=== PATIENT | female | born 1965 | race Asian ===

== ENCOUNTER 2019-04-13 20:48 | Emergency (ER) | payer OTHER ==
[~2019-04-13] VITALS: Ht 157.5 cm; Wt 50.0 kg
[2019-04-13] MEDS ORDERED: LISI-662 PO (20:58)
[2019-04-13] MEDS ORDERED: METF-960 PO (20:58)
[2019-04-13 21:10] LABS: GLUCOSE,POINT OF CARE 344 MG/DL (70-110)
[2019-04-13] MEDS ORDERED: LORATADINE 10 MG TABLET PO ONE (21:30)
[2019-04-13 22:14] VITALS: BP 145/85
== END 2019-04-13 22:20 | disposition home or self-care (01) ==
LOC: EMS 20:50
DX: T78.1XXA Other adverse food reactions, not elsewhere classified, initial encounter (principal); T78.49XA Other allergy, initial encounter; E11.9 Type 2 diabetes mellitus without complications; I10 Essential (primary) hypertension; F17.210 Nicotine dependence, cigarettes, uncomplicated; Z79.899 Other long term (current) drug therapy; X58.XXXA Exposure to other specified factors, initial encounter
CPT/HCPCS: 99406

== ENCOUNTER 2019-04-17 12:18 | Emergency (ER) | payer OTHER ==
[~2019-04-17] VITALS: Ht 157.5 cm; Wt 50.9 kg
[~2019-04-17 12:18] MED LIST: LISI-662 PO; METF-960 PO
[2019-04-17 12:46] LABS: GLUCOSE,POINT OF CARE 162 MG/DL (70-110)
[2019-04-17] MEDS ORDERED: MethylPREDNISolone SOD SUCC 125 MG/2 ML VIAL IM ONE (13:30)
[2019-04-17] MEDS ORDERED: DiphenhydrAMINE HCL 25 MG CAPSULE PO ONE (13:30)
[2019-04-17 13:33] VITALS: BP 122/91
== END 2019-04-17 14:09 | disposition home or self-care (01) ==
LOC: EMS 12:19
DX: L50.9 Urticaria, unspecified (principal); E11.9 Type 2 diabetes mellitus without complications; I10 Essential (primary) hypertension; Z79.899 Other long term (current) drug therapy
CPT/HCPCS: 82962; 96372; 99283; J2930

== ENCOUNTER 2022-03-22 12:43 | Emergency (ER) | payer OTHER ==
[~2022-03-22] VITALS: Ht 157.5 cm; Wt 48.2 kg
[~2022-03-22 12:43] MED LIST changes: -LISI-662 PO; +LISI-894 PO; +METF-1211 PO; -METF-960 PO
[2022-03-22 17:02] VITALS: BP 140/80
== END 2022-03-22 17:11 | disposition home or self-care (01) ==
LOC: EMS 12:58
DX: S80.02XA Contusion of left knee, initial encounter (principal); S80.01XA Contusion of right knee, initial encounter; E11.9 Type 2 diabetes mellitus without complications; I10 Essential (primary) hypertension; M54.50 Low back pain, unspecified; W01.0XXA Fall on same level from slipping, tripping and stumbling without subsequent striking against object, initial encounter; Y93.89 Activity, other specified; Y92.89 Other specified places as the place of occurrence of the external cause; Y99.8 Other external cause status
CPT/HCPCS: 99283

== ENCOUNTER 2023-01-02 12:15 | Emergency (ER) | payer OTHER ==
[~2023-01-02] VITALS: Ht 157.5 cm; Wt 47.7 kg
[2023-01-02] MEDS ORDERED: EMPA25TA3 PO (12:22)
[2023-01-02] MEDS ORDERED: VITAMIN D PO (12:22)
[2023-01-02 12:33] VITALS: TEMP 97.8
[2023-01-02 12:36] LABS: GLUCOMETER DEV NAME(LOC) ER.6; GLUCOSE,POINT OF CARE 150 MG/DL (70-110)
[2023-01-02] MEDS ORDERED: IBUPROFEN 400 MG TABLET PO ONE (14:15)
[2023-01-02] MEDS ORDERED: IBUP-1506 PO (14:42)
[2023-01-02 15:00] VITALS: BP 126/79; PULSE 98; RESP 16
== END 2023-01-02 15:23 | disposition home or self-care (01) ==
LOC: EMS 12:17
DX: S20.211A Contusion of right front wall of thorax, initial encounter (principal); E11.9 Type 2 diabetes mellitus without complications; I10 Essential (primary) hypertension; X58.XXXA Exposure to other specified factors, initial encounter; Y93.89 Activity, other specified; Y92.89 Other specified places as the place of occurrence of the external cause; Y99.8 Other external cause status
CPT/HCPCS: 71101; 82962; 99283

== ENCOUNTER 2023-03-17 18:00 | Emergency (ER) | payer MEDICAID, OTHER ==
[~2023-03-17] VITALS: Ht 157.5 cm; Wt 72.7 kg
[~2023-03-17 18:00] MED LIST changes: +EMPA25TA3 PO; +IBUP-1506 PO; +VITAMIN D PO
[2023-03-17 18:08] VITALS: TEMP 98.4
[2023-03-17] MEDS ORDERED: IOHEXOL 350 MG/ML 100 ML VIAL ONE (19:08)
[2023-03-17] MEDS ORDERED: SODIUM CHLORIDE 0.9% 100 ML ONE (19:08)
[2023-03-17 19:49] LABS: BASOPHILS % (AUTO) 0.8 % (0.0-2.0); EOSINOPHILS % (AUTO) 1.4 % (1.0-6.0); HEMATOCRIT 37.1 % (36-46); HEMOGLOBIN 11.5 g/dL (12.0-16.0); LYMPHOCYTES # (AUTO) 1.8 K/uL (1.0-4.8); LYMPHOCYTES % (AUTO) 23.2 % (22.0-44.0); MEAN CORPUSCULAR HEMOGLOBIN 20.9 pg (26.0-34.0); MEAN CORPUSCULAR HGB CONC 31.1 G/dL (31.0-37.0); MEAN CORPUSCULAR VOLUME 67 fL (80-100); MONOCYTES # (AUTO) 0.6 K/uL (0.1-1.0); MONOCYTES % (AUTO) 7.5 % (2.0-9.0); NEUTROPHILS # (AUTO) 5.1 K/uL (1.8-7.7); NEUTROPHILS % (AUTO) 67.1 % (40.0-70.0); PLATELET COUNT (AUTO) 220 K/uL (150-450); RED BLOOD CELL COUNT(AUTO) 5.51 MIL/uL (4.00-5.20); RED CELL DISTRIBUTION WIDTH 15.7 % (11.5-14.5); WHITE BLOOD COUNT (AUTO) 7.6 K/uL (4.5-11.0)
[2023-03-17 20:02] LABS: ANION GAP 13 mmol/L (8-16); CALCIUM, TOTAL 9.4 mg/dL (8.8-10.5); CARBON DIOXIDE 24 mmol/L (22-29); CHLORIDE 101 mmol/L (98-107); CREATININE 0.85 mg/dL (0.60-1.30); GLOMERULAR FILTR. RATE CALC > 60 mL/min (>60); GLUCOSE,RANDOM 154 mg/dL (70-110); POTASSIUM 3.6 mmol/L (3.5-5.1); SODIUM SERUM 138 mmol/L (136-145); UREA NITROGEN, BLOOD 22 mg/dL (7-18)
[2023-03-17 20:08] LABS: ALANINE AMINOTRANSFERASE 21 U/L (12-78); ALBUMIN 3.7 g/dL (3.4-5.0); ALKALINE PHOSPHATASE 70 U/L (46-116); ASPARTATE AMINOTRANSFERASE 21 U/L (15-37); BILIRUBIN,TOTAL 0.4 mg/dL (0.1-1.0); TOTAL PROTEIN, SERUM 8.2 g/dL (6.4-8.2)
[2023-03-17] MEDS ORDERED: ONDANSETRON HCL 4 MG/2 ML VIAL IVP ONE (21:00)
[2023-03-17] MEDS ORDERED: MORPHINE SULFATE 4 MG/ML SYRINGE IVP ONE (21:00)
[2023-03-17 21:07] LABS: RBC MORPHOLOGY COMMENT ABNORMAL RBC MORPH
[2023-03-17 21:45] VITALS: BP 124/70; PULSE 69; RESP 15
[2023-03-17] MEDS ORDERED: IBUP-1506 PO (21:50)
== END 2023-03-17 22:13 | disposition home or self-care (01) ==
LOC: EMS 18:01
DX: M54.2 Cervicalgia (principal); R51.9 Headache, unspecified; R10.84 Generalized abdominal pain; E11.9 Type 2 diabetes mellitus without complications; I10 Essential (primary) hypertension; Z98.890 Other specified postprocedural states; V98.8XXA Other specified transport accidents, initial encounter; Y93.89 Activity, other specified; Y92.89 Other specified places as the place of occurrence of the external cause; Y99.8 Other external cause status
CPT/HCPCS: 99285; 70450; 96374; 96375; 80053; 82962; 85025; 36415; 73590; 71260; 72125; 74176; J2270; J2405; Q9967; J7050; 72193; 74160

== ENCOUNTER 2023-03-24 17:08 | Emergency (ER) | payer OTHER ==
[~2023-03-24] VITALS: Ht 157.5 cm; Wt 46.8 kg
[2023-03-24 17:14] VITALS: TEMP 98.5
[2023-03-24] MEDS ORDERED: METH-811 PO (17:16)
[2023-03-24] MEDS ORDERED: CHOL200074 PO (17:16)
[2023-03-24] MEDS ORDERED: AMLO5TAB66 PO (17:16)
[2023-03-24] MEDS ORDERED: SODIUM CHLORIDE 0.9% 1,000 ML IV ONE (17:45)
[2023-03-24 18:08] LABS: BASOPHILS % (AUTO) 1.4 % (0.0-2.0); HEMATOCRIT 37.5 % (36-46); HEMOGLOBIN 11.8 g/dL (12.0-16.0); LYMPHOCYTES # (AUTO) 2.1 K/uL (1.0-4.8); LYMPHOCYTES % (AUTO) 28.5 % (22.0-44.0); MEAN CORPUSCULAR HEMOGLOBIN 21.2 pg (26.0-34.0); MEAN CORPUSCULAR HGB CONC 31.6 G/dL (31.0-37.0); MEAN CORPUSCULAR VOLUME 67 fL (80-100); MONOCYTES # (AUTO) 0.6 K/uL (0.1-1.0); MONOCYTES % (AUTO) 7.7 % (2.0-9.0); NEUTROPHILS # (AUTO) 4.4 K/uL (1.8-7.7); NEUTROPHILS % (AUTO) 60.4 % (40.0-70.0); PLATELET COUNT (AUTO) 230 K/uL (150-450); RED BLOOD CELL COUNT(AUTO) 5.58 MIL/uL (4.00-5.20); RED CELL DISTRIBUTION WIDTH 15.9 % (11.5-14.5); WHITE BLOOD COUNT (AUTO) 7.2 K/uL (4.5-11.0)
[2023-03-24] MEDS ORDERED: TETRACAINE HCL/PF 0.5% 4 ML OPHTHALMIC SOLUTION OS ONE (18:15)
[2023-03-24 18:17] LABS: CREATININE 1.37 mg/dL (0.60-1.30); POTASSIUM 3.6 mmol/L (3.5-5.1)
[2023-03-24 18:23] LABS: ALBUMIN 3.8 g/dL (3.4-5.0); BILIRUBIN,TOTAL 0.3 mg/dL (0.1-1.0); TOTAL PROTEIN, SERUM 8.6 g/dL (6.4-8.2)
[2023-03-24] MEDS ORDERED: HYDROCODONE/ACETAMINOPHEN 5-325 MG TABLET PO ONE (19:15)
[2023-03-24 19:23] LABS: RBC MORPHOLOGY COMMENT ABNORMAL RBC MORPH
[2023-03-24] MEDS ORDERED: TRAM-559 PO (21:15)
[2023-03-24 21:30] VITALS: BP 132/73; PULSE 89; RESP 16
== END 2023-03-24 21:30 | disposition home or self-care (01) ==
LOC: EMS 17:09
DX: H57.12 Ocular pain, left eye (principal); R51.9 Headache, unspecified; E11.9 Type 2 diabetes mellitus without complications; I10 Essential (primary) hypertension; Z98.890 Other specified postprocedural states
CPT/HCPCS: 99284; 96360; 70450; 96361; 80053; 85025; 36415; J7030

== ENCOUNTER 2024-11-13 22:00 | Inpatient (IN) | payer OTHER ==
[~2024-11-13] VITALS: Ht 157.5 cm; Wt 47.7 kg
[~2024-11-13 22:00] MED LIST changes: +AMLO5TAB66 PO; +CHOL200074 PO; +METH-811 PO; +TRAM50TA5 PO; -VITAMIN D PO
[2024-11-13 22:05] VITALS: TEMP 98.2
[2024-11-13 22:31] LABS: GLUCOMETER DEV NAME(LOC) AHU.; GLUCOSE,POINT OF CARE 173 MG/DL (70-110)
[2024-11-13] MEDS ORDERED: KETOROLAC TROMETHAMINE 30 MG/ML VIAL IVP ONE (22:45)
[2024-11-13 22:56] LABS: BASOPHILS % (AUTO) 0.7 % (0.0-2.0); EOSINOPHILS % (AUTO) 1.2 % (1.0-6.0); HEMATOCRIT 42.4 % (36-46); HEMOGLOBIN 13.2 g/dL (12.0-16.0); LYMPHOCYTES # (AUTO) 1.4 K/uL (1.0-4.8); LYMPHOCYTES % (AUTO) 13.2 % (22.0-44.0); MEAN CORPUSCULAR HEMOGLOBIN 20.8 pg (26.0-34.0); MEAN CORPUSCULAR HGB CONC 31.2 G/dL (31.0-37.0); MEAN CORPUSCULAR VOLUME 67 fL (80-100); MONOCYTES # (AUTO) 0.6 K/uL (0.1-1.0); MONOCYTES % (AUTO) 5.4 % (2.0-9.0); NEUTROPHILS # (AUTO) 8.2 K/uL (1.8-7.7); NEUTROPHILS % (AUTO) 79.5 % (40.0-70.0); PLATELET COUNT (AUTO) 227 K/uL (150-450); RED BLOOD CELL COUNT(AUTO) 6.37 MIL/uL (4.00-5.20); RED CELL DISTRIBUTION WIDTH 15.6 % (11.5-14.5); WHITE BLOOD COUNT (AUTO) 10.3 K/uL (4.5-11.0)
[2024-11-13 22:59] LABS: CALCIUM, TOTAL 8.9 mg/dL (8.8-10.5); CREATININE 1.12 mg/dL (0.60-1.30); POTASSIUM 3.4 mmol/L (3.5-5.1)
[2024-11-13 23:00] LABS: APPEARANCE,URINE CLEAR (CLEAR); BILIRUBIN,URINE NEGATIVE (NEGATIVE); COLOR,URINE LIGHT YELLOW (YELLOW); GLUCOSE, URINE (UA) >=1000 mg/dL (NEGATIVE); KETONES,URINE NEGATIVE (NEGATIVE); LEUKOCYTE ESTERASE ,URINE NEGATIVE (NEGATIVE); NITRATE,URINE NEGATIVE (NEGATIVE); OCCULT BLOOD,URINE NEGATIVE (NEGATIVE); PROTEIN,URINE 30-70 mg/dL (NEGATIVE); SPECIFIC GRAVITIY, URINE 1.032 (1.003-1.030); UROBILINOGEN,URINE <=1.0 mg/dL (<=1.0)
[2024-11-13 23:05] LABS: ALBUMIN 3.9 g/dL (3.4-5.0); BILIRUBIN,DIRECT 0.1 mg/dL (0.00-0.20); BILIRUBIN,TOTAL 0.4 mg/dL (0.1-1.0); TOTAL PROTEIN, SERUM 8.7 g/dL (6.4-8.2)
[2024-11-13 23:11] LABS: RBC,URINE None Seen /HPF (0-2); WBC,URINE 0-2 /HPF (0-5)
[2024-11-13 23:12] LABS: BACTERIA,URINE None Seen /HPF (None Seen); SQUAMOUS EPITHELIAL CELL,UR Rare /LPF (None Seen)
[2024-11-13] MEDS: SODIUM CHLORIDE 0.9% 1,000 ML IV ONE (23:33)
[2024-11-13] MEDS ORDERED: IOHEXOL 350 MG/ML 100 ML VIAL ONE (23:33)
[2024-11-13] MEDS: FAMOTIDINE 20 MG/2 ML VIAL IVP ONE (23:33)
[2024-11-13] MEDS ORDERED: SODIUM CHLORIDE 0.9% 100 ML ONE (23:33)
[2024-11-13] MEDS: KETOROLAC TROMETHAMINE 15 MG/ML VIAL IVP ONE (23:34)
[2024-11-13 23:35] LABS: RBC MORPHOLOGY COMMENT ABNORMAL RBC MORPH
[2024-11-14] MEDS: MetroNIDAZOLE 500 MG/NACL 100 ML IV ONE (03:08)
[2024-11-14] MEDS: CIPROFLOXACIN 400 MG/D5% WATER 200 ML IV ONE (03:32)
[2024-11-14 08:14] VITALS: BP 117/77; PULSE 88; RESP 16; O2SAT 99
== END 2024-11-14 08:29 | disposition left against medical advice (07) | DRG 249 ==
LOC: EMS 22:00 → EDH 11-14 07:24
PROVIDERS: ADMIT Hospitalist; ATTEND Hospitalist
DX: K52.9 Noninfective gastroenteritis and colitis, unspecified (principal); K80.20 Calculus of gallbladder without cholecystitis without obstruction; E11.9 Type 2 diabetes mellitus without complications; E78.5 Hyperlipidemia, unspecified; I10 Essential (primary) hypertension; Z53.29 Procedure and treatment not carried out because of patient's decision for other reasons
CPT/HCPCS: 74177; 76705; 80048; 80076; 81001; 82962; 83690; 85025; 99285; G0378; J0744; J1885; J3490; J7030; J7050